=== PATIENT | female | born 1970 | race Caucasian/White ===

== ENCOUNTER 2017-04-04 18:11 | Observation (INO) | payer BC ==
[~2017-04-04] VITALS: Ht 160 cm; Wt 66.7 kg
--- NOTE | ~2017-04-04 | HP ---
History And Physical [place] [id number] [facility] [place]. [address] NAME: BIBIANA BELL : 72 STATUS : ADM Kaykay PAT#: [id number] AGE: 46 ADM/REG DATE : 04/04/17 MR#: [id number] REPORT SERV DATE: 04/05/17 DICTATED BY: VERONIKA CROSS DATE: 04/05/17 REPORT STATUS : Draft TRANSCRIBED BY: MODL DATE: 04/05/17 DATE OF ADMISSION: 04/04/2017 CHIEF COMPLAINT: Dyspnea, chest pain, and transient tingling of the mouth and arms. HISTORY OF PRESENT ILLNESS: This is a 46-year-old white female with no known history of coronary artery disease and no cardiac risk factors. She had been in her state of usual excellent health until several weeks ago when she developed dyspnea and a dry cough. She went to urgent care, who provided her with steroids and azithromycin along with albuterol. She completed azithromycin on Friday. She reports that for the first two days after starting this therapy, her symptoms improved, however, she then went back to the same symptoms. Her symptoms have persisted. She denies any productive cough. She denies any fevers. She denies any nasal congestion. Yesterday, at approximately 6 p.m., she developed multiple brief episodes of tingling and numbness in her face, mouth, and left arm. She denies any one-sided weakness or dysarthria or dysphagia. She overall just felt weak and fatigued and short of breath. She did report that she also had chest heaviness and it was hard to breathe and hard to take deep breaths. She also has recently been having palpitations since taking steroids, although she has not had none while in the [facility], monitored overnight. At this present time, she has no symptoms today and reports no further tingling, numbness, and no chest pain. She is not coughing today while I am in the room. PAST MEDICAL HISTORY: 1. "Slight" case of pneumonia last year. 2. ADHD, on Vyvanse on weekdays, but she has not taken this in a few weeks. Given that she was going to be placed on steroids, she was concerned for adverse effect of elevated blood pressure. 3. Note she does not have any history of hypertension, hyperlipidemia, diabetes mellitus 2, CVA, or TIA. SOCIAL HISTORY: She is . She denies any tobacco including secondhand smoking. She does have social alcohol. She does consume caffeine. Normally, she has excellent exercise tolerance without any symptoms until coughing and dyspnea over the past few weeks as described in the HPI. FAMILY HISTORY: Paternal grandfather of a myocardial infarction at the age of 72. No family history of premature coronary artery disease. REVIEW OF SYSTEMS: Patient describes never having a cardiac evaluation. She denies any chest pain with exertion. As above per HPI, all other systems reviewed and negative. ALLERGIES: NO KNOWN DRUG ALLERGIES. MEDICATIONS: Home medication list reviewed and is as follows; 1. ProAir two puffs inhaled daily as needed for shortness of breath. 2. Vyvanse 60 mg p.o. every morning, last taken 04/02/2016. History And Physical [address] [address] NAME: BIBIANA BELL : 72 STATUS : ADM Kaykay PAT#: [id number] AGE: 46 ADM/REG DATE : 04/04/17 MR#: [id number] REPORT SERV DATE: 04/05/17 DICTATED BY: VERONIKA CROSS DATE: 04/05/17 REPORT STATUS : Draft TRANSCRIBED BY: JUSTIN DATE: 04/05/17 3. Milk of magnesia one dose p.o. daily p.r.n. constipation. 4. Multiple vitamins with minerals one tablet p.o. at bedtime. PHYSICAL EXAMINATION: VITAL SIGNS: Oxygen saturation 97% on room air, weight 66.67 kg, temperature 98.7, pulse 76, respiratory rate 20, blood pressure 130/79. GENERAL: Well developed, well nourished. In no apparent distress. HEENT: Head normocephalic. No xanthelasma. Sclera clear, anicteric. Moist mucous membranes without pallor. No lymphadenopathy. No deficits noted. NECK: Trachea midline. Supple. No thyromegaly, JVD, or bruits. RESPIRATORY: Unlabored respirations. Breath sounds clear bilaterally to posterior auscultation. No wheezes, rhonchi or crackles. CARDIOVASCULAR: Regular rate and rhythm. No murmur, rub, or gallop appreciated. No chest wall tenderness to palpation. ABDOMEN: Soft, nontender, and nondistended. Active bowel sounds auscultated x4 quadrants. No organomegaly and no masses. No aortic bruit. EXTREMITIES: DP/PT and radial pulses 2+ bilaterally. No clubbing, cyanosis, or edema. SKIN: Warm, dry, intact. No rash. Normal turgor. MUSCULOSKELETAL: Moves all extremities in bed without difficulty. NEURO/PSYCH: Alert and oriented x3 with no acute distress. Affect appropriate to current situation. LABORATORY DATA: 1. BMP: Sodium 141, potassium 3.7, creatinine 0.6, glucose 103, calcium 8.5, magnesium 1.9. 2. CBC: White blood cell count 10.8, hemoglobin slightly low at 11.7, hematocrit slightly low at 35.8, platelets 349. Troponin less than 0.02 x3. 3. BNP 20.2. 4. TSH normal at 1.370. D-dimer normal at 0.31. Hepatic function panel was unremarkable except for albumin is slightly low at 3.3, but LFTs and lipase are all unremarkable. 5. Urinalysis was performed and was unremarkable. hCG serum was negative. Lactate was normal at 0.8. Procalcitonin was also normal at less than 0.05. STUDIES: Chest x-ray; normal single-view chest x-ray with no prior exams. EKG; normal sinus rhythm with no ischemia. Possible left atrial enlargement. Telemetry; normal sinus rhythm. No events. ASSESSMENT AND PLAN: 1. Transient tingling and numbness in the face and arm. This fully resolved yesterday evening and was not associated with any one-sided deficits. No further evaluation needed at this time as symptoms have fully resolved, however, if she has any recurrence of those symptoms, she is to immediately return to the emergency department for further evaluation and treatment of those symptoms. The patient voices understanding and agreement with that plan. 2. Atypical chest pain. 3. Dyspnea on exertion. Given atypical chest pain and dyspnea on exertion, I ordered a stress echocardiogram for risk stratification. Note she does not have any known History And Physical [address] [address] NAME: BIBIANA BELL : 72 STATUS : ADM Kaykay PAT#: [id number] AGE: 46 ADM/REG DATE : 04/04/17 MR#: [id number] REPORT SERV DATE: 04/05/17 DICTATED BY: VERONIKA CROSS DATE: 04/05/17 REPORT STATUS : Draft TRANSCRIBED BY: JUSTIN DATE: 04/05/17 cardiac risk factors, had three negative troponins, EKGs were benign, D-dimer was benign, and TSH was within normal limits. Stress echocardiogram was obtained and it revealed no ischemia. She had remarkable exercise tolerance with a Escalante Treadmill Score of 10 with no ischemia on imaging or EKG. Ejection fraction was greater than 55%. The patient will be discharged to home and is to follow up with her primary care provider as per previously scheduled on Friday. 4. Anemia. The patient denies any bleeding. She is to take a multivitamin with iron supplementation and follow up with primary care provider for further monitoring and treatment of mild anemia. MIHAI/JUSTIN Veronika Cross NP / [id number] CC: BRIGITTE Ayala NP
[2017-04-04 20:22] LABS: BASOPHILS 0.4 %; BASOPHILS ABSOLUTE 0.04 10/3/uL (0.0-0.16); EOSINOPHILS 1.5 %; EOSINOPHILS ABSOLUTE 0.16 10/3/uL (0.0-0.53); ER CBC TAT 0 Hrs 07 Mins; HEMATOCRIT 35.8 % (36.0-48.0); HEMOGLOBIN 11.7 g/dL (12.0-16.0); IMMATURE GRANULOCYTES 0.3 %; IMMATURE GRANULOCYTES ABSOLUTE 0.03 10/3/uL (0.0-0.11); LYMPHOCYTES 17.1 %; LYMPHOCYTES ABSOLUTE 1.84 10/3/uL (0.67-4.30); MANUAL DIFF NO %; MEAN CORPUS HGB CONC 32.7 g/dL (32.0-36.0); MEAN CORPUSCULAR HEMOGLOB 28.7 pg (26.0-34.0); MEAN CORPUSCULAR VOLUME 87.7 fL (80-100); MEAN PLATELET VOLUME 10.3 fL (9.2-13.0); MONOCYTES 7.9 %; MONOCYTES ABSOLUTE 0.85 10/3/uL (0.21-1.20); NEUTROPHILS 72.8 %; NEUTROPHILS ABSOLUTE 7.83 10/3/uL (2.02-8.40); PLATELET COUNT 349 10/3/uL (150-400); RBC DISTRIBUTION WIDTH 13.2 % (12.0-16.0); RED CELL COUNT 4.08 10/6/uL (4.0-5.6); WHITE BLOOD CELLS 10.8 10/3/uL (4.5-10.5)
[2017-04-04 20:30] LABS: PARTIAL THROMBO TIME 28.6 SEC (22.5-37.2)
[2017-04-04 20:31] LABS: INTERNATIONAL NORMAL RATI 1.1 UNITS (-)
[2017-04-04 20:37] LABS: D-DIMER QUANTITATIVE 0.31 ug/mLFEU (< 0.50)
[2017-04-04 20:43] LABS: LACTATE 0.8 MMOL/L (0.3-2.4)
[2017-04-04 20:45] LABS: ALBUMIN 3.3 G/DL (3.5-5.0); BUN (BLOOD UREA NITROGEN) 9 MG/DL (6-23); CHEST PAIN PROFILE TAT 0 Hrs 30 Mins; CHLORIDE, SERUM 105 MMOL/L (96-112); CO2 (CARBON DIOXIDE) 27 MMOL/L (24-34); GFR AFRICAN AMERICAN 128 ML/MIN (>=60); GFR NON AFRICAN AMERICAN 110 ML/MIN (>=60); GLUCOSE, SERUM 103 MG/DL (60-99); POTASSIUM, SERUM 3.7 MMOL/L (3.5-5.3); SGOT(AST) 19 U/L (5-40); SGPT(ALT) 25 U/L (5-65); SODIUM, SERUM 141 MMOL/L (135-148); TOTAL BILIRUBIN 0.7 MG/DL (0-1.2); TOTAL PROTEIN 6.7 G/DL (6.0-8.5); TROPONIN I <0.02 NG/ML (<0.05)
[2017-04-04 20:46] LABS: ALKALINE PHOSPHATASE 80 U/L (45-117); CALCIUM, SERUM 8.5 MG/DL (8.5-10.4); DIRECT BILIRUBIN < 0.1 MG/DL (0.0-0.4); INDIRECT BILIRUBIN(NOT ORDER) 0.6 MG/DL (0.1-0.9)
[2017-04-04 20:58] LABS: PROCALCITONIN <0.05 ng/mL (<0.5)
[2017-04-04 21:52] LABS: ASCORBIC ACID (UR NOT ORDER) NEG (NEG); BILIRUBIN, URINE NEGATIVE (NEG); KETONE, URINE NEGATIVE (NEG); LEUKOCYTE ESTERASE(NOT OR NEG (NEG); NITRITE (URINE) NEG (NEG); WBC (NOT ORDERED) (RFLEX) 1 (0-5)
[2017-04-04] MEDS ORDERED: VYVANSE60 MG PO (22:05)
[2017-04-04] MEDS ORDERED: DEXAMETHASON1 MG PO (22:05)
[2017-04-04] MEDS ORDERED: CENTRUM PO (22:05)
[2017-04-04] MEDS ORDERED: ZITHROMAX500 MG PO (22:06)
[2017-04-04] MEDS ORDERED: ASA5GR PO (22:06)
[2017-04-04] MEDS ORDERED: PROAIR HFA INH (22:06)
[2017-04-04] MEDS ORDERED: MOMUD PO (22:06)
[2017-04-05 07:52] LABS: BUN (BLOOD UREA NITROGEN) 11 MG/DL (6-23); CALCIUM, SERUM 8.8 MG/DL (8.5-10.4); CHLORIDE, SERUM 109 MMOL/L (96-112); CO2 (CARBON DIOXIDE) 27 MMOL/L (24-34); CREATININE 0.57 MG/DL (0.55-1.02); GFR AFRICAN AMERICAN 130 ML/MIN (>=60); GFR NON AFRICAN AMERICAN 112 ML/MIN (>=60); GLUCOSE, SERUM 94 MG/DL (60-99); SODIUM, SERUM 143 MMOL/L (135-148)
[2017-04-05] MEDS ORDERED: ASAB PO (13:36)
== END 2017-04-05 14:09 | disposition home or self-care (01) ==
LOC: ER 18:11 → CDU1 23:23
PROVIDERS: Nurse Practitioner; Nurse Practitioner Family
DX: R07.89 Other chest pain (principal); R20.0 Anesthesia of skin; D64.9 Anemia, unspecified; R06.00 Dyspnea, unspecified
CPT/HCPCS: 71010; 80048; 80076; 81001; 83605; 83690; 83735; 83880; 84145; 84443; 84484; 84703; 85025; 85379; 85610; 85730; 87040; 93005; 93017; 93350; 99285; A9270-GY; G0378